=== PATIENT | female | born 1995 | race Caucasian/White ===

== ENCOUNTER 2021-07-02 20:22 | Emergency (ER) | payer OTHER ==
[~2021-07-02] VITALS: Ht 162.6 cm; Wt 64.0 kg
[2021-07-02 20:29] VITALS: BP 120/73
[2021-07-02] MEDS ORDERED: KETOROLAC 15MG/ML VIAL IM ONE (21:15)
[2021-07-02] MEDS ORDERED: ACETAMINOPHEN 325MG TABLET PO ONE (21:15)
== END 2021-07-02 23:06 | disposition home or self-care (01) ==
LOC: ER 20:22
DX: S20.212A Contusion of left front wall of thorax, initial encounter (principal); F41.9 Anxiety disorder, unspecified; F32.9 Major depressive disorder, single episode, unspecified; F20.9 Schizophrenia, unspecified; X58.XXXA Exposure to other specified factors, initial encounter; Y93.9 Activity, unspecified; Y92.9 Unspecified place or not applicable; Z88.3 Allergy status to other anti-infective agents
CPT/HCPCS: 71045; 96372; 99283; J1885

== ENCOUNTER 2021-10-26 20:53 | Emergency (ER) | payer MEDICAID, OTHER ==
[~2021-10-26] VITALS: Ht 172.7 cm; Wt 77.0 kg
[2021-10-26 22:00] LABS: BASOPHILS % 0.6 % (0.0-2.0); EOSINOPHILS % 0.2 % (0.0-5.0); HEMATOCRIT. 41.7 % (36.0-48.0); HEMOGLOBIN. 14.1 g/dL (12.0-16.0); LYMPHOCYTES % 22.9 % (20.0-50.0); MEAN CORPUSCULAR HEMOGLOBIN 29.2 pg (28.0-32.0); MEAN CORPUSCULAR VOLUME 86.5 fL (81.0-99.0); MEAN PLATELET VOLUME 7.5 fl (7.4-10.4); MONOCYTES % 4.5 % (2.0-8.0); NEUTROPHILS % 71.8 % (40.0-76.0); PLATELET 349 x1000/uL (130-400); RED BLOOD CELL COUNT 4.81 mill/uL (4.2-5.4); RED CELL DISTRIBUTION WIDTH 13.5 % (11.6-14.6)
[2021-10-26 22:09] LABS: HCG SCREEN NEGATIVE
[2021-10-26 22:14] LABS: CLARITY URINE CLEAR (CLEAR); COLOR URINE YELLOW (YELLOW); KETONES URINE NEGATIVE (NEGATIVE); LEUKOCYTE ESTERASE URINE NEGATIVE (NEGATIVE); NITRITE URINE NEGATIVE (NEGATIVE); OCCULT BLOOD URINE NEGATIVE (NEGATIVE); PH URINE 5.5 (4.5-8.0); PROTEIN URINE NEGATIVE (NEGATIVE); SPECIFIC GRAVITY URINE 1.011 (1.005-1.030); UROBILINOGEN URINE 0.2 E.U./dL (0.2-1.0)
[2021-10-26 22:18] LABS: CHLORIDE 106 mEq/L (98-107)
[2021-10-26 22:22] LABS: ETHANOL BLOOD 17 mg/dL
[2021-10-26 22:25] LABS: *AMPHETAMINES SCREEN URINE NEGATIVE (NEGATIVE); *BARBITURATES SCREEN URINE NEGATIVE (NEGATIVE); *BENZODIAZEPINES SCREEN URINE NEGATIVE (NEGATIVE); *COCAINE SCREEN URINE NEGATIVE (NEGATIVE); METHADONE URINE SCREEN NEGATIVE (NEGATIVE); OPIATES URINE SCREEN NEGATIVE (NEGATIVE); PHENCYCLIDINE URINE SCREEN NEGATIVE (NEGATIVE)
[2021-10-26 22:30] LABS: CANNABINOID URINE SCREEN PRESUMTIVE POSITIVE (NEGATIVE)
[2021-10-27] MEDS ORDERED: TETANUS, DIPHTHERIA, PERTUSSIS VAC/PF 0.5ML (>10YR OLD) IM ONE (02:00)
[2021-10-27] MEDS ORDERED: LORAZEPAM 2MG/ML CPJ IM ONE (03:30)
[2021-10-27 18:26] VITALS: BP 105/75
== END 2021-10-27 18:48 ==
LOC: ER 20:53
DX: T39.012A Poisoning by aspirin, intentional self-harm, initial encounter (principal); S50.812A Abrasion of left forearm, initial encounter; F10.129 Alcohol abuse with intoxication, unspecified; F12.10 Cannabis abuse, uncomplicated; F20.9 Schizophrenia, unspecified; F31.9 Bipolar disorder, unspecified; F43.10 Post-traumatic stress disorder, unspecified; Y90.0 Blood alcohol level of less than 20 mg/100 ml; Z20.822 Contact with and (suspected) exposure to COVID-19; Z88.0 Allergy status to penicillin; X78.9XXA Intentional self-harm by unspecified sharp object, initial encounter; Y93.89 Activity, other specified; Y92.018 Other place in single-family (private) house as the place of occurrence of the external cause
CPT/HCPCS: 36415; 80048; 80076; 80305; 80307; 80320; 80329; 81003; 84703; 85025; 87426; 90471; 90715; 96372; 99285; C9803; J2060; G0480